=== PATIENT | female | born 1985 | race Caucasian/White ===

== ENCOUNTER 2019-12-16 10:00 | Outpatient (RCR) | payer OTHER, MEDICAID, SELFPAY | END 2019-12-16 10:05 | disposition home or self-care (01) | LOC: PT 10:00 | PROVIDERS: PCP Nurse Practitioner Family | DX: M54.5 Low back pain (principal) | CPT/HCPCS: 97010; 97014; 97110; 97163; G0283 ==

== ENCOUNTER 2020-06-03 17:15 | Emergency (ER) | payer MEDICAID, SELFPAY ==
[2020-06-03 17:31] VITALS: BP 111/75; PULSE 93; RESP 18; TEMP 36.8; O2SAT 98; BMI 28.3
[2020-06-03 17:35] LABS: Apearance,Urine Cloudy (Clear); Color,Urine Dark Yellow (Yellow); Glucose,Urine (UA) Negative (Negative); PH,Urine 5.5 (5.0-8.5); Protein,Urine 1+ (Negative)
[2020-06-03 17:36] LABS: Bilirubin,Urine 1+ (Negative); Blood, Urine 3+ (Negative); Ketones,Urine Negative (Negative); UTC Leukocyte Esterase,Urine Trace (Negative); UTC Nitrate,Urine Negative (Negative); Urobilinogen,Urine 0.2 EU/dl (0.2)
--- NOTE | 2020-06-03 18:04 | HMH.EDUTC ---
[facility] [place] Clinical Impression: UTI (urinary tract infection) Qualifiers: Urinary tract infection type: acute cystitis Hematuria presence: without hematuria Qualified Code(s): N30.00 - Acute cystitis without hematuria Disposition: Home, Self-Care Condition on Discharge: Good Instructions: Urinary Tract Infection Additional Instructions: Increase fluids, water and not soda or tea. Can drink cranberry juice or cranberry extract. White front to back Wear cotton underwear Empty bladder after intercourse Start antibiotics immediately and make sure you take the full course although you may start to see improvement over the next 48 hours. You can eat yogurt or take probiotics to decrease diarrhea or yeast infection caused by the antibiotic Be sure to follow-up anytime for new or worsening symptoms in 48 hours for wound urine culture results be sure to let you PCP no recent urine for culture so they can request records and ensure that you have appropriate antibiotic if you are not getting better or getting worse. If symptoms worsen or do not improve return or be seen in the ER. Follow-up with primary care this week. Prescriptions: cephALEXin [Keflex 500mg Cap] 500 mg PO BID 10 Days #20 cap Transmission Status: Pending to [facility] cephALEXin [Keflex 500mg Cap] 500 mg PO BID 10 Days #20 cap Prescription Printed Referrals: PCP,No [Primary Care Provider] - Time of Disposition: 18:18 Medical Decision Making - Channing Inquiry Pt receiving controlled substance: No Vital Signs: 06/03/20 17:31 Temperature 98.2 F Temperature Source Oral Pulse Rate [Right Brachial] 93 H Respiratory Rate 18 Blood Pressure [Right Arm] 111/75 Blood Pressure Mean [Right Arm] 87 Blood Pressure Source [Right Arm] Automatic Cuff Blood Pressure Position [Right Arm] Sitting 02 Sat by Pulse Oximetry 98 Oxygen Delivery Method Room Air - Lab Data Lab Results 06/03/20 17:19: Urine Color Dark yellow, Urine Appearance Cloudy, Urine pH 5.5, Ur Specific [place] 1.030, Urine Protein 1+, Urine Glucose (UA) Negative, Urine Ketones Negative, Urine Blood 3+, Urine Nitrate Negative, Urine Bilirubin 1+ A, Urine Urobilinogen 0.2, Ur Leukocyte Esterase Trace Orders (Tests/Meds): ORDERS Category Date Time Status Urine Culture Stat Micro 06/03/20 17:35 Ordered [facility] [place] - General Chief complaint: Urgent [facility] Center Stated complaint: painful voiding Time Seen by Provider: 06/03/20 18:04 Mode of Arrival: Ambulatory Source of Information: Patient Limitations: No Limitations Description of Symptoms (Recalled from Triage Doc. by RN): PATIENT C/O PAIN WITH URINATION SINCE LAST NIGHT HEENT Symptoms (Recalled from RN notes): No Resp Symptoms (Recalled from RN notes): No Skin Symptoms (Recalled from RN notes): No MS Symptoms (Recalled from RN notes): No Functional Status (Recalled from RN notes): WNL - History of Present Illness Provider Complaint: 35 yr old female presents for burning with urination, freq urination,needing to go alot snce last pm - Related Data Home Medications Medication Instructions Recorded Confirmed buprenorphine 8 mg-naloxone 2 mg SUBLINGUAL #28 tab 03/26/19 04/30/19 sublingual tablet bupropion HCl 150 mg 24 hr tablet, PO #30 tab 03/26/19 04/30/19 extended release buspirone 5 mg tablet 5 mg PO #30 tab 03/26/19 04/30/19 mirtazapine 30 mg tablet 30 mg PO #30 tab 03/26/19 04/30/19 Previous Rx's Medication Instructions Recorded acetaminophen 325 mg capsule 325 mg PO Q6H PRN #14 cap 06/24/18 predniSONE [Prednisone 20mg 20 mg PO BID #10 tab 02/12/19 Tab] doxycycline hyclate 100 mg capsule 100 mg PO BID 5 Days #10 cap 03/26/19 doxycycline hyclate 100 mg capsule 100 mg PO BID #60 cap 04/30/19 cephALEXin [Keflex 500mg Cap] 500 mg PO BID 10 Days #20 cap 06/03/20 cephALEXin [Keflex 500mg Cap] 500 mg PO BID 10 Days #20 cap 06/03/20 Allergies Allergy/AdvReac Type Severity Reaction Status
[2020-06-03 18:22] VITALS: BP 111/75; PULSE 93; RESP 18; TEMP 36.8; O2SAT 98
== END 2020-06-03 18:25 | disposition home or self-care (01) ==
PROVIDERS: Emergency Provider Nurse Practitioner Family
DX: N30.00 Acute cystitis without hematuria (principal); F41.8 Other specified anxiety disorders; F17.210 Nicotine dependence, cigarettes, uncomplicated
CPT/HCPCS: 81003; 87086; 87088; 87186; 99201

== ENCOUNTER → 2020-10-10 17:14 | Outpatient (CLI) | payer MEDICAID, SELFPAY ==
[2020-10-10 18:21] LABS: HCG,Quantitative 8083 mIU/ml (0-5.42)
== END ==
PROVIDERS: Visit Provider Obstetrics & Gynecology
DX: Z32.00 Encounter for pregnancy test, result unknown (principal)
CPT/HCPCS: 36415; 84702

== ENCOUNTER → 2020-10-18 12:58 | Outpatient (CLI) | payer MEDICAID, SELFPAY ==
--- NOTE | 2020-10-18 13:03 | US_ITS ---
PROCEDURE: US OB TRANSVAGINAL CLINICAL INDICATION: US OB Dates COMPARISON: No exams were available for comparison FINDINGS: An intrauterine gestational sac is present with a pole with a crown-rump length of 0.8cm correlating to gestational age of 6weeks 6days. heart tones are present with an FHR of 122bpm. Yolk sac is noted. Unremarkable adnexa IMPRESSION: Live IUP at 6 weeks 6 days Estimated due date by Ultrasound is 06/07/2021 Dictated by: Nino Sal MD 10/18/2020 16:55 Nino Sal MD in OV 10/18/2020 16:55
== END ==
PROVIDERS: Visit Provider Obstetrics & Gynecology
DX: O26.841 Uterine size-date discrepancy, first trimester (principal)
CPT/HCPCS: 76817

== ENCOUNTER → 2020-11-22 10:09 | Outpatient (CLI) | payer MEDICAID, SELFPAY ==
[2020-11-22 11:22] LABS: Barbiturates Screen,Urine Negative ng/ml (<200)
[2020-11-22 11:23] LABS: Amphetamine/Metha Screen,Urine Negative ng/ml (<1000); Benzodiazepines Screen,Urine Negative ng/ml (<200)
[2020-11-22 11:24] LABS: Cocaine Screen,Urine Negative ng/ml (<300); Methadone Screen,Urine Negative ng/ml (<300)
[2020-11-22 11:25] LABS: Cannabinoid Screen,Urine Negative ng/ml (<50)
[2020-11-22 11:26] LABS: Opiate Screen,Urine Negative ng/ml (<300); Phencyclidine Screen,Urine Negative ng/ml (<25)
[2020-11-22 11:48] LABS: Basophils % 0.4 % (0.1-2.0); Eosinophils # 0.1 K/mm3 (0.0-0.4); Eosinophils % 1.6 % (0.1-12.0); Hematocrit 38.6 % (37.0-47.0); Hemoglobin 13.6 g/dL (12.2-16.2); Lymphocytes # 2.2 K/mm3 (0.7-4.5); Lymphocytes % 30.5 % (10-50); Mean Corpuscular HGB Conc 35.3 g/dL (31.8-35.4); Mean Corpuscular Hemoglobin 30.8 pg (27.0-31.2); Mean Corpuscular Volume 87.3 fl (81-99); Mean Platelet Volume 8.2 fl (7.4-10.4); Monocytes # 0.4 K/mm3 (0.1-1.0); Monocytes % 5.7 % (1.7-9.3); Neutrophils # 4.4 K/mm3 (1.8-7.8); Neutrophils % 61.8 % (37.0-80.0); Platelet Count 246 K/mm3 (142-424); Red Blood Count 4.41 M/mm3 (4.20-5.40); Red Cell Distribution Width 13.7 % (11.5-17.5); White Blood Count 7.1 K/mm3 (4.8-10.8)
[2020-11-23 11:29] LABS: Hepatitis B Surface Antigen Negative (Negative); Hepatitis C Antibody >11.0 s/co ratio (0.0-0.9)
[2020-11-23 11:30] LABS: HIV Screen 4th Generation wRfx Non Reactive (Non Reactive); Rubella Antibodies, IgG 2.56 index (Immune >0.99)
[2020-11-24 11:32] LABS: Rapid Plasma Reagin Ab Titer Non Reactive (NonRea<1:1)
== END ==
PROVIDERS: Visit Provider Obstetrics & Gynecology
DX: Z34.90 Encounter for supervision of normal pregnancy, unspecified, unspecified trimester (principal)
CPT/HCPCS: 36415; 80305; 85025; 86592; 86703; 86762; 86850; 87340; 87380; G0432

== ENCOUNTER → 2020-12-06 14:57 | Outpatient (CLI) | payer MEDICAID, SELFPAY | PROVIDERS: PCP Obstetrics & Gynecology; Visit Provider Nurse Practitioner Family | DX: Z20.822 Contact with and (suspected) exposure to COVID-19 (principal); J02.9 Acute pharyngitis, unspecified | CPT/HCPCS: U0003 ==

== ENCOUNTER → 2021-02-01 21:59 | Outpatient (CLI) | payer MEDICAID, SELFPAY | PROVIDERS: PCP Obstetrics & Gynecology; Visit Provider Nurse Practitioner Family | DX: Z20.822 Contact with and (suspected) exposure to COVID-19 (principal) | CPT/HCPCS: U0003 ==

== ENCOUNTER 2021-05-10 10:44 | Inpatient (IN) | payer MEDICAID, SELFPAY ==
[2021-05-10 11:07] VITALS: BP 116/71; PULSE 50; RESP 19; TEMP 36.4; O2SAT 100; BMI 25.0
[2021-05-10 13:13] LABS: Coronavirus 19, PCR Not Detected (NotDetected); Influenza A, PCR Not Detected (NotDetected); Influenza B, PCR Not Detected (NotDetected)
[2021-05-10 13:19] LABS: Basophils # 0.1 K/mm3 (0-0.2); Basophils % 0.4 % (0.1-2.0); Eosinophils # 0.1 K/mm3 (0.0-0.4); Eosinophils % 0.5 % (0.1-12.0); Hematocrit 33.8 % (37.0-47.0); Hemoglobin 11.8 g/dL (12.2-16.2); Lymphocytes # 2.1 K/mm3 (0.7-4.5); Lymphocytes % 12.2 % (10-50); MANUAL DIFFERENTIAL MANUAL DIFFERENTIAL (MANUAL DIFF); Mean Corpuscular Hemoglobin 28.5 pg (27.0-31.2); Mean Corpuscular Volume 81.5 fl (81-99); Mean Platelet Volume 8.8 fl (7.4-10.4); Monocytes # 0.6 K/mm3 (0.1-1.0); Monocytes % 3.4 % (1.7-9.3); Neutrophils # 14.2 K/mm3 (1.8-7.8); Neutrophils % 83.6 % (37.0-80.0); Platelet Count 208 K/mm3 (142-424); Red Blood Count 4.15 M/mm3 (4.20-5.40); Red Cell Distribution Width 13.6 % (11.5-17.5)
[2021-05-10 13:21] LABS: Microscopic, Urine URINE MICROSCOPIC (MICROSCOPIC)
[2021-05-10 13:33] LABS: Lymphocytes % 11 % (10-50); Monocytes % 4 % (2-9); Neutrophils % 85 % (42-76); Platelet Estimate Normal; RBC Morphology Normal; Total Cells Counted 100
[2021-05-10 13:41] LABS: Benzodiazepines Screen,Urine Negative ng/ml (<200)
[2021-05-10 13:42] LABS: Amphetamine/Metha Screen,Urine Negative ng/ml (<1000)
[2021-05-10 13:43] LABS: Barbiturates Screen,Urine Negative ng/ml (<200); Cannabinoid Screen,Urine Negative ng/ml (<50)
[2021-05-10 13:44] LABS: Cocaine Screen,Urine Negative ng/ml (<300)
[2021-05-10 13:45] LABS: Methadone Screen,Urine Negative ng/ml (<300); Opiate Screen,Urine Negative ng/ml (<300)
[2021-05-10 13:46] LABS: Phencyclidine Screen,Urine Negative ng/ml (<25)
[2021-05-10 13:52] LABS: Appearance,Urine TURBID (Clear); Bilirubin,Urine Negative (Negative); Blood, Urine 3+ (Negative); Color,Urine RED (Yellow); Glucose,Urine (UA) Negative (Negative); Ketones,Urine 2+ (Negative); Leukocyte Esterase,Urine 1+ (Negative); Nitrate,Urine POSITIVE (Negative); PH,Urine 8.5 (5.0-8.5); Protein,Urine 3+ (Negative)
[2021-05-10 14:13] LABS: Bacteria,Urine 1+ /lpf; RBC,Urine 20-50 #/hpf (0-3)
--- NOTE | 2021-05-10 15:32 | HMH.HP ---
*Admission Date: 05/10/21 *Chief complaint: s/p vaginal delivery at home *History of present illness: 36 yo presented by EMS s/p vaginal delivery at home, approximately 10:10am today She had no care, other than a single appointment in the first trimester, in November 2020 complicated by subutex 8mg BID, tobacco smoking, and chronic hepatitis c EMS was called out to the house after precipitous vaginal delivery in the patient's bathroom Placenta was still intact upon arrival to [facility] Infant liveborn and brought to hospital for assessment The patient was placed in lithotomy position and the placenta was delivered using downward traction No vulvar/vaginal/cervical lesions noted EBL 100cc upon arrival [facility] History I have reviewed the patient's past medical history: Yes Medical History: Reports:: Anxiety, Depression, Hepatitis *Have you ever received a pneumonia vaccine?: No *Have you received a flu vaccine this season?: No Other Medical History: Reports: Sinus Problems, Other Laterality Cases: Bilateral: Tonsillectomy Other Surgeries: Yes: No Previous Surgery, Cholecystectomy. No: Amputation: No Fractures: No - *Social History Smoking Status: Current every day smoker Tobacco Type: cigarettes # Packs/Day (cigarettes): 1 Alcohol Intake: never Alcohol Intake Frequency:: holidays/special occasions only Substance Use Type: former substance user *Occupational Status:: unemployed Housing: house Household Members: family *Travel in the last 8 weeks: None - Psychiatric History Pschychiatric History:: Reports:: Anxiety, Depression Family Hx:: Cancer, Diabetes, Hypertension, Stroke : 6 Para: 4 Review of Systems - Review of Systems Review of systems:: pertinent systems reviewed and negative unless documented below - *Genitourinary Denies abnormal vaginal bleeding Meds Home Medications Medication Instructions Recorded Confirmed Type buprenorphine 8 mg-naloxone 2 mg 8 mg SUBLINGUAL BID #28 tab 03/26/19 05/10/21 History sublingual tablet Allergies Allergy/AdvReac Type Severity Reaction Status Date / Time Penicillins Allergy Verified 02/23/21 18:06 Exam Vital signs and Labs for Last 24 Hours: Temp Pulse Resp BP Pulse Ox 97.5 F L 50 L 19 116/71 100 05/10/21 11:07 05/10/21 11:07 05/10/21 11:07 05/10/21 11:07 05/10/21 11:07 Laboratory Results - last 24 hr 05/10/21 12:00: Urine Color Red, Urine Appearance Turbid, Urine pH 8.5, Ur Specific [place] 1.020, Urine Protein 3+, Urine Glucose (UA) Negative, Urine Ketones 2+, Urine Blood 3+, Urine Nitrate Positive, Urine Bilirubin Negative, Urine Urobilinogen 2.0, Ur Leukocyte Esterase 1+ A, Urine RBC 20-50, Urine WBC 5-10, Ur Squamous Epith Cells 3-5, Urine Bacteria 1+ 05/10/21 12:40: Urine Opiates Screen Negative, Urine Methadone Screen Negative, Ur Barbituates Screen Negative, Ur Phencyclidine Scrn Negative, Ur Amphetamines Screen Negative, U Benzodiazepines Scrn Negative, Urine Cocaine Screen Negative, U Marijuana (THC) Screen Negative 05/10/21 12:59: SARS-CoV-2 (PCR) Not detected, Influenza A Untype (PCR) Not detected, Influenza Type B (PCR) Not detected 05/10/21 13:07: WBC 17.0 H, RBC 4.15 L, Hgb 11.8 L, Hct 33.8 L, MCV 81.5, MCH 28.5, MCHC 35.0, RDW 13.6, Plt Count 208, MPV 8.8, Neut % (Auto) 83.6 H, Lymph % (Auto) 12.2, [place] % (Auto) 3.4, Eos % (Auto) 0.5, Baso % (Auto) 0.4, Neut # (Auto) 14.2 H, Lymph # (Auto) 2.1, [place] # (Auto) 0.6, Eos # (Auto) 0.1, Baso # (Auto) 0.1, Total Counted 100, Neutrophils % (Manual) 85 H, Lymphocytes % (Manual) 11, Monocytes % (Manual) 4, Platelet Estimate Normal, RBC Morphology Normal 05/10/21 13:07: Blood Type O Positive, Antibody Screen Negative I & O for Last 24 hours: Intake & Output 05/08/21 05/09/21 05/10/21 05/11/21 11:59 11:59 11:59 11:59 Weight 150 lb - Constitutional mild distress - *Routine HEENT Exam Head: Present: normocephalic Eye: Present: EOMI, PERRL EN
--- NOTE | 2021-05-10 16:34 | HMH.DCSUM ---
General - General Admission date:: 05/10/21 Discharge date: 05/10/21 HPI HPI: 36 yo presented by EMS s/p vaginal delivery at home, approximately 10:10am today She had no care, other than a single appointment in the first trimester, in November 2020 complicated by subutex 8mg BID, tobacco smoking, and chronic hepatitis c EMS was called out to the house after precipitous vaginal delivery in the patient's bathroom Placenta was still intact upon arrival to [facility] Infant liveborn and brought to hospital for assessment The patient was placed in lithotomy position and the placenta was delivered using downward traction No vulvar/vaginal/cervical lesions noted EBL 100cc upon arrival Hospital Course Hospital Course: maternal course uneventful UDS negative, but patient admitted to recent heroin use infant having withdrawal symptoms and concerns for meconium aspiration and was transferred to tertiary center mother requesting discharge home today in order to follow infant to [place] Objective Vital signs: Temp Pulse Resp BP Pulse Ox 97.5 F L 50 L 19 116/71 100 05/10/21 11:07 05/10/21 11:07 05/10/21 11:07 05/10/21 11:07 05/10/21 11:07 Narrative: CONSTITUTIONAL: no acute distress HEENT: mucous membranes moist PULMONARY: breathing unlabored without audible wheezes CV: no tachycardia or visible JVD; normal LE peripheral pulses ABD: soft, NT/ND, no guarding : fundus firm below umbilicus SKIN: no visible rash or lesions EXT: 1+ edema LEs NEURO: alert/oriented, no altered mental status PSYCH: appropriate mood and demeanor Results Labs on day of discharge: Labs from last 24 hours 05/10/21 05/10/21 05/10/21 13:07 13:07 12:59 WBC 17.0 H RBC 4.15 L Hgb 11.8 L Hct 33.8 L MCV 81.5 MCH 28.5 MCHC 35.0 RDW 13.6 Plt Count 208 MPV 8.8 Neut % (Auto) 83.6 H Lymph % (Auto) 12.2 [place] % (Auto) 3.4 Eos % (Auto) 0.5 Baso % (Auto) 0.4 Neut # (Auto) 14.2 H Lymph # (Auto) 2.1 [place] # (Auto) 0.6 Eos # (Auto) 0.1 Baso # (Auto) 0.1 Total Counted 100 Neutrophils % (Manual) 85 H Lymphocytes % (Manual) 11 Monocytes % (Manual) 4 Platelet Estimate Normal RBC Morphology Normal Urine Color Urine Appearance Urine pH Ur Specific [place] Urine Protein Urine Glucose (UA) Urine Ketones Urine Blood Urine Nitrate Urine Bilirubin Urine Urobilinogen Ur Leukocyte Esterase Urine RBC Urine WBC Ur Squamous Epith Cells Urine Bacteria Urine Opiates Screen Urine Methadone Screen Ur Barbituates Screen Ur Phencyclidine Scrn Ur Amphetamines Screen U Benzodiazepines Scrn Urine Cocaine Screen U Marijuana (THC) Screen SARS-CoV-2 (PCR) Not detected Influenza A Untype (PCR) Not detected Influenza Type B (PCR) Not detected Blood Type O Positive Antibody Screen Negative 05/10/21 05/10/21 12:40 12:00 WBC RBC Hgb Hct MCV MCH MCHC RDW Plt Count MPV Neut % (Auto) Lymph % (Auto) [place] % (Auto) Eos % (Auto) Baso % (Auto) Neut # (Auto) Lymph # (Auto) [place] # (Auto) Eos # (Auto) Baso # (Auto) Total Counted Neutrophils % (Manual) Lymphocytes % (Manual) Monocytes % (Manual) Platelet Estimate RBC Morphology Urine Color Red Urine Appearance Turbid Urine pH 8.5 Ur Specific [place] 1.020 Urine Protein 3+ Urine Glucose (UA) Negative Urine Ketones 2+ Urine Blood 3+ Urine Nitrate Positive Urine Bilirubin Negative Urine Urobilinogen 2.0 Ur Leukocyte Esterase 1+ A Urine RBC 20-50 Urine WBC 5-10 Ur Squamous Epith Cells 3-5 Urine Bacteria 1+ Urine Opiates Screen Negative Urine Methadone Screen Negative Ur Barbituates Screen Negative Ur Phencyclidine Scrn Negative Ur Amphetamines Screen Negative U Benzodiazep
--- NOTE | 2021-05-11 10:28 | SW/DCPLANNER ---
I have called and spoke with Anni ([employer] Mechanic) at [facility] regarding situation and not being reported to Central Intake due to discharge of mother and transport of .
== END 2021-05-10 16:50 | disposition home or self-care (01) | DRG 776 ==
PROVIDERS: Admitting Provider Obstetrics & Gynecology; PCP Obstetrics & Gynecology; Visit Provider Obstetrics & Gynecology
DX: Z39.0 Encounter for care and examination of mother immediately after delivery (principal); O99.323 Drug use complicating pregnancy, third trimester; O60.10X0 Preterm labor with preterm delivery, unspecified trimester, not applicable or unspecified; B18.2 Chronic viral hepatitis C; F11.10 Opioid abuse, uncomplicated; O99.330 Smoking (tobacco) complicating pregnancy, unspecified trimester; F17.210 Nicotine dependence, cigarettes, uncomplicated; Z3A.36 36 weeks gestation of pregnancy
CPT/HCPCS: 59430; 80305; 81001; 85007; 85025; 86850; 87086; U0003

== ENCOUNTER → 2021-08-08 14:44 | Outpatient (CLI) | payer MEDICAID, SELFPAY ==
[2021-08-08 15:02] LABS: Basophils % 0.5 % (0.1-2.0); Eosinophils # 0.2 K/mm3 (0.0-0.4); Eosinophils % 2.1 % (0.1-12.0); Hematocrit 35.3 % (37.0-47.0); Hemoglobin 11.2 g/dL (12.2-16.2); Lymphocytes % 29.3 % (10-50); Mean Corpuscular HGB Conc 31.7 g/dL (31.8-35.4); Mean Corpuscular Hemoglobin 25.8 pg (27.0-31.2); Mean Corpuscular Volume 81.2 fl (81-99); Mean Platelet Volume 8.9 fl (7.4-10.4); Monocytes # 0.5 K/mm3 (0.1-1.0); Monocytes % 7.1 % (1.7-9.3); Neutrophils # 4.2 K/mm3 (1.8-7.8); Platelet Count 339 K/mm3 (142-424); Red Blood Count 4.35 M/mm3 (4.20-5.40); Red Cell Distribution Width 14.7 % (11.5-17.5)
[2021-08-08 15:16] LABS: Chloride 104 mmol/L (98-107); Sodium 140 mmol/L (136-145)
[2021-08-08 15:17] LABS: Potassium 4.2 mmoL/L (3.5-5.1)
[2021-08-08 15:19] LABS: Alanine Aminotransferase 16 U/L (12-78); Albumin Level 3.5 g/dl (3.5-5.0); Albumin/Globulin Ratio 1.1 (1.1-1.8); Alkaline Phosphatase 115 U/L (38-126); Aspartate Amino Transferase 22 U/L (14-36); Bilirubin,Total < 0.1 mg/dl (0.2-1.3); Blood Urea Nitrogen 6 mg/dl (7-17); Carbon Dioxide 31 mmol/L (22.0-30.0); Estimated Glomerular Filt Rate 140 ml/min (>60); GFR (African American) 170 ML/MIN (>60); Globulin 3.3 g/dL (1.3-3.2); Total Protein,Serum 6.8 g/dl (6.3-8.2)
[2021-08-08 15:20] LABS: Anion Gap 9.2 mEq/L (5-15); Calcium 9.1 mg/dl (8.4-10.2); Glucose 105 mg/dl (74-100)
[2021-08-10 05:10] LABS: HIV Screen 4th Generation wRfx Non Reactive (Non Reactive)
[2021-08-10 07:12] LABS: Hep A Ab, IgM Negative (Negative); Hep A Ab, Total Positive (Negative); Hep B Core Ab, Total Positive (Negative); Hep B Surface Ab, Qual Reactive (.); Hepatitis B Surface Antigen Negative (Negative); Hepatitis C Antibody >11.0 s/co ratio (0.0-0.9)
[2021-08-11 05:49] LABS: ALT (SGPT) P5P 14 IU/L (0-40); Alpha 2-Macroglobulins, Qn 179 mg/dL (110-276); Apolipoprotein A-1 107 mg/dL (116-209); Bilirubin, Total <0.1 mg/dL (0.0-1.2); Fibrosis Score 0.02 (0.00-0.21); GGT 9 IU/L (0-60); Haptoglobin 207 mg/dL (33-278); Necroinflammat Activity Grade A0-No activity (.); Necroinflammat Activity Score 0.03 (0.00-0.17)
== END ==
PROVIDERS: Visit Provider Emergency Medicine
DX: R76.8 Other specified abnormal immunological findings in serum (principal); Z01.84 Encounter for antibody response examination; Z11.4 Encounter for screening for human immunodeficiency virus [HIV]
CPT/HCPCS: 80053; 81596; 85025; 86703; 86704; 86706; 86708; 87340; 87380; 87522; G0432

== ENCOUNTER → 2021-11-12 20:27 | Outpatient (CLI) | payer MEDICAID, SELFPAY ==
--- NOTE | 2021-11-12 20:40 | XR_ITS ---
PROCEDURE INFORMATION: Exam: XR Chest Exam date and time: 11/12/2021 8:40 PM Age: 36 years old Clinical indication: Condition or disease; Lung condition and disease; Tuberculosis; Patient HX: Positive tb skin test; Additional info: R/O tb TECHNIQUE: Imaging protocol: XR of the chest. Views: 2 views. COMPARISON: CR CXR2V XR chest 2V 02/12/2019 2:01 PM FINDINGS: Lungs: Unremarkable. No consolidation. Pleural spaces: Unremarkable. No pleural effusion. No pneumothorax. Heart/Mediastinum: Unremarkable. No cardiomegaly. Bones/joints: There is mild levoconvex lower cervical and upper thoracic scoliosis which may be positional. No occult fracture. IMPRESSION: No acute findings.
== END ==
PROVIDERS: PCP Emergency Medicine; Visit Provider Nurse Practitioner Family
DX: R76.12 Nonspecific reaction to cell mediated immunity measurement of gamma interferon antigen response without active tuberculosis (principal)
CPT/HCPCS: 71046

== ENCOUNTER 2021-12-04 19:22 | Emergency (ER) | payer SELFPAY ==
[2021-12-04 19:23] VITALS: BP 113/82; PULSE 105; RESP 16; TEMP 36.7; O2SAT 98; BMI 16.6
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
[2021-12-04 19:59] VITALS: BP 123/79; PULSE 101; RESP 16; TEMP 36.7; O2SAT 98
== END 2021-12-04 20:02 ==
PROVIDERS: Emergency Provider Emergency Medicine; PCP Emergency Medicine
DX: Z00.8 Encounter for other general examination (principal); Z88.0 Allergy status to penicillin; F41.8 Other specified anxiety disorders
CPT/HCPCS: 99282

== ENCOUNTER → 2022-01-01 11:54 | Outpatient (CLI) | payer MEDICAID, SELFPAY ==
[2022-01-03 20:09] LABS: QuantiFERON-TB Gold Plus Negative (Negative)
== END ==
PROVIDERS: PCP Emergency Medicine; Visit Provider Nurse Practitioner Family
DX: Z20.822 Contact with and (suspected) exposure to COVID-19 (principal)
CPT/HCPCS: 36415; 86480

== ENCOUNTER 2022-01-01 12:57 | Emergency (ER) | payer MEDICAID, SELFPAY ==
[2022-01-01 13:06] VITALS: BP 110/70; PULSE 96; RESP 20; TEMP 37; O2SAT 99; BMI 22.3
[2022-01-01 13:23] VITALS: BP 110/70; PULSE 96; RESP 20; TEMP 37; O2SAT 99; BMI 22.1
[2022-01-01 13:45] LABS: Urine Pregnancy, HCG Qual. Negative (Negative)
--- NOTE | 2022-01-01 13:53 | HMH.EDGENADL ---
ED Disposition Clinical Impression: Pneumonia Qualifiers: Pneumonia type: due to unspecified organism Laterality: left Lung location: lower lobe of lung Qualified Code(s): J18.9 - Pneumonia, unspecified organism Serous otitis media Qualifiers: Chronicity: acute Laterality: right Recurrence: not specified as recurrent Qualified Code(s): H65.01 - Acute serous otitis media, right ear Disposition: Home, Self-Care Condition on Discharge: Good Instructions: DI for Pneumonia -- Adult, DI for Otitis Media (Middle Ear Infection)-Child Additional Instructions: Quarantine yourself until you obtain your COVID-19 test result. You will be called with the result if it is positive. You may check the results yourself on the [facility] portal. Additional instructions for PNEUMONIA: Take antibiotics as prescribed. See your physician as soon as possible for further evaluation. Return immediately if you have an uncontrollable fever greater than 102 degrees, difficulty breathing or shortness of breath, persistent vomiting, or severe chest pain. Prescriptions: Cefdinir [Omnicef 300mg Capsule] 300 mg PO BID #20 cap Transmission Status: Pending to [facility] Azithromycin [Zithromax 250mg tab] 250 mg PO DAILY #4 tab Transmission Status: Pending to [facility] Referrals: Todd Brownlee MD [Primary Care Provider] - - Critical Care Critical Care Time: No Attestation: On 01/01/22, the high probability of a clinically significant, sudden or life threatening deterioration of the following system(s) required my full and direct attention, intervention and personal management. The time I documented below is in addition to time spent performing reported procedures but includes the following listed in this critical care notation. Medical Decision Making - Channing Inquiry Pt receiving controlled substance: No Vital Signs: 01/01/22 13:06 01/01/22 13:23 Temperature 98.6 F 98.6 F Temperature Source Oral Oral Pulse Rate [Left Radial] 96 H 96 H Respiratory Rate 20 20 Blood Pressure [Left Arm] 110/70 110/70 Blood Pressure Mean [Left Arm] 83 83 Blood Pressure Source [Left Arm] Automatic Cuff Automatic Cuff Blood Pressure Position [Left Arm] Sitting Sitting 02 Sat by Pulse Oximetry 99 99 Oxygen Delivery Method Room Air Room Air - Lab Data Lab Results 03/01/22 13:28: Urine HCG, Qual Negative 01/01/22 13:28: Urine Color Dk yellow, Urine Appearance Cloudy, Urine pH 5.5, Ur Specific [place] >= 1.030, Urine Protein Trace, Urine Glucose (UA) Negative, Urine Ketones Negative, Urine Blood 3+, Urine Nitrate Negative, Urine Bilirubin Negative, Urine Urobilinogen 0.2, Ur Leukocyte Esterase Negative, Urine RBC 50-100, Urine WBC Occasional, Ur Squamous Epith Cells None, Urine Bacteria None Orders (Tests/Meds): ORDERS Category Date Time Status Covid-19 Nasal PCR ([facility]) Routine Lab 01/01/22 15:22 Received - Radiology Data #1 Image(s): Chest Image Reviewed: Yes I reviewed the patient's radiology image, Yes I have reviewed radiologist's interpretation Procedure(s): XR chest 2V Accession Number(s): [id number] cc: Todd Brownlee MD; Gurvinder Dempsey MD~ FINAL REPORT CLINICAL HISTORY: cough, smoker, no surgeries COMPARISON: November 12, 2021 FINDINGS: Two views of the chest were obtained. The heart size and pulmonary vascularity are within normal limits. The mediastinum is normal. There is new left base opacity consistent with pneumonia. There is no pneumothorax. The bony thorax is intact. IMPRESSION: New left base opacity consistent with pneumonia. Reviewed, Interpreted and Dictated by Gurvinder Dempsey III, MD Transcribed by Pat Soares Authenticated by Gurvinder Dempsey III, MD on 01/01/2022 03:10:20 PM [facility] Medical Decision Narrative: States allergy to penicillin as a child. She has had amoxicillin and Keflex without problems. Ge
[2022-01-01 13:57] LABS: Microscopic, Urine URINE MICROSCOPIC (MICROSCOPIC)
[2022-01-01 13:59] LABS: Appearance,Urine CLOUDY (Clear); Bilirubin,Urine Negative (Negative); Blood, Urine 3+ (Negative); Color,Urine DK YELLOW (Yellow); Glucose,Urine (UA) Negative (Negative); Ketones,Urine Negative (Negative); Leukocyte Esterase,Urine Negative (Negative); Nitrate,Urine Negative (Negative); PH,Urine 5.5 (5.0-8.5); Protein,Urine TRACE (Negative); Specific Gravity, Urine >= 1.030 (1.005-1.030); Urobilinogen,Urine 0.2 EU/dl (0.2)
[2022-01-01 14:11] LABS: RBC,Urine 50-100 #/hpf (0-3); WBC,Urine Occasional #/hpf (0-3)
--- NOTE | 2022-01-01 14:23 | XR_ITS ---
FINAL REPORT CLINICAL HISTORY: cough, smoker, no surgeries COMPARISON: November 12, 2021 FINDINGS: Two views of the chest were obtained. The heart size and pulmonary vascularity are within normal limits. The mediastinum is normal. There is new left base opacity consistent with pneumonia. There is no pneumothorax. The bony thorax is intact. IMPRESSION: New left base opacity consistent with pneumonia. Reviewed, Interpreted and Dictated by Gurvinder Dempsey III, MD Transcribed by Pat Soares Authenticated by Gurvinder Dempsey III, MD on 01/01/2022 03:10:20 PM [facility]
--- NOTE | 2022-01-01 15:35 | PC.NURSE ---
pt left out of the ambulance bay [facility] staff went out after pt, pt states she was hungry and wanted to smoke. Informed pt we could get her food and she could not smoke on hospital property. Pt came into ER with ER staff.
[2022-01-01 15:42] VITALS: BP 112/64; PULSE 91; RESP 19; TEMP 37; O2SAT 99
== END 2022-01-01 15:44 | disposition home or self-care (01) ==
PROVIDERS: Emergency Provider Emergency Medicine; PCP Emergency Medicine
DX: J18.9 Pneumonia, unspecified organism (principal); H65.01 Acute serous otitis media, right ear; F41.8 Other specified anxiety disorders; F17.210 Nicotine dependence, cigarettes, uncomplicated
CPT/HCPCS: 71046; 81001; 81025; 99283; C9803; U0003; U0005

== ENCOUNTER 2022-02-27 12:34 | Emergency (ER) | payer MEDICAID, SELFPAY ==
[2022-02-27 12:35] VITALS: BP 125/70; PULSE 101; RESP 17; TEMP 36.9; O2SAT 99; BMI 24.0
--- NOTE | 2022-02-27 12:45 | XR_ITS ---
FINAL REPORT TECHNIQUE: Chest PA & Lateral CLINICAL HISTORY: Productive cough COMPARISON: January 01, 2022 FINDINGS: 2 views of the chest were performed. The heart size is normal. The mediastinum is within normal limits. There is no acute cardiopulmonary process. There are no pleural effusions. There is no pneumothorax. The bony thorax appears intact. IMPRESSION: No acute cardiopulmonary process. Reviewed, Interpreted and Dictated by Ankit Godinez MD Transcribed by Anthony Cisneros Authenticated by Ankit Godinez MD on 02/27/2022 02:05:47 PM [facility]
--- NOTE | 2022-02-27 13:09 | HMH.EDGENADL ---
ED Disposition Clinical Impression: Acute bronchitis Qualifiers: Bronchitis organism: unspecified organism Qualified Code(s): J20.9 - Acute bronchitis, unspecified Disposition: Home, Self-Care Condition on Discharge: Good Instructions: DI for Acute Bronchitis Additional Instructions: Zithromax as prescribed. Tessalon as needed for cough. Additional instructions for ACUTE BRONCHITIS: Use Tylenol or Ibuprofen for pain or fever. Rest and plenty of fluids. Return immediately if you have an uncontrollable fever greater than 102 degrees, severe headache or neck stiffness, difficulty breathing or shortness of breath, persistent vomiting, severe sore throat or inability to swallow. See your physician if not improving in 4-5 days. Prescriptions: Benzonatate [Benzonatate 100mg cap] 100 mg PO TIDP PRN #15 cap PRN Reason: Cough Transmission Status: Pending to [facility] Azithromycin [Zithromax 250mg tab] 250 mg PO DIRECTED #6 tab Transmission Status: Pending to [facility] Referrals: Todd Brownlee MD [Primary Care Provider] - Forms: Work/School Release - Critical Care Critical Care Time: No Attestation: On 02/27/22, the high probability of a clinically significant, sudden or life threatening deterioration of the following system(s) required my full and direct attention, intervention and personal management. The time I documented below is in addition to time spent performing reported procedures but includes the following listed in this critical care notation. Medical Decision Making - Channing Inquiry Pt receiving controlled substance: No Vital Signs: 02/27/22 12:35 Temperature 98.4 F Temperature Source Oral Pulse Rate [Right Radial] 101 H Respiratory Rate 17 Blood Pressure [Right Arm] 125/70 Blood Pressure Mean [Right Arm] 88 Blood Pressure Source [Right Arm] Automatic Cuff Blood Pressure Position [Right Arm] Sitting 02 Sat by Pulse Oximetry 99 Oxygen Delivery Method Room Air Orders (Tests/Meds): ORDERS Category Date Time Status XR chest 2V Stat Exams 02/27/22 12:45 Taken - Radiology Data #1 Image(s): Chest Image Reviewed: Yes I reviewed the patient's radiology image Preliminary Findings: Normal/NAD Medical Decision Narrative: Findings consistent with acute bronchitis, however given her recent bout of pneumonia, I will cover with Zithromax. General Adult HPI - General Chief complaint: Upper Respiratory Infection Stated complaint: cough Time Seen by Provider: 02/27/22 13:15 Mode of Arrival: Ambulatory Limitations: No Limitations Description of Symptoms (Recalled from ER Triage Doc. by RN): C/O productive cough x2 days - History of Present Illness HPI narrative: 2-day history of her productive cough with green sputum. Feels feverish, but temperature not taken. Denies rhinorrhea. She does have a sore throat. No known exposures to any illnesses. Seen by me in this emergency department 01/01/2022 for pneumonia. She recovered from that. She is a smoker. No history of asthma or COPD. - Related Data Home Medications Medication Instructions Recorded Confirmed buprenorphine 8 mg-naloxone 2 mg 8 mg SUBLINGUAL BID #28 tab 03/26/19 05/10/21 sublingual tablet mirtazapine 15 mg tablet 15 mg PO HS 08/08/21 08/08/21 Previous Rx's Medication Instructions Recorded gabapentin 300 mg capsule 300 mg PO TID #90 cap 08/08/21 cephalexin 500 mg capsule 500 mg PO Q12H 10 Days #20 cap 08/09/21 phenazopyridine 200 mg tablet 200 mg PO TID PRN 0 Days #6 tab 08/09/21 Azithromycin [Zithromax 250mg 250 mg PO DAILY #4 tab 01/01/22 tab] Cefdinir [Omnicef 300mg Capsule] 300 mg PO BID #20 cap 01/01/22 Azithromycin [Zithromax 250mg 250 mg PO DIRECTED #6 tab 02/27/22 tab] Benzonatate [Benzonatate 100mg 100 mg PO TIDP PRN #15 cap 02/27/22 cap] Allergies Allergy/AdvReac Type Severity Reaction Status Date / Time P
[2022-02-27 13:32] VITALS: BP 121/68; PULSE 94; RESP 17; TEMP 36.8; O2SAT 99
== END 2022-02-27 13:33 | disposition home or self-care (01) ==
PROVIDERS: Emergency Provider Emergency Medicine; PCP Emergency Medicine
DX: J06.9 Acute upper respiratory infection, unspecified (principal); J02.9 Acute pharyngitis, unspecified; J32.9 Chronic sinusitis, unspecified; K75.9 Inflammatory liver disease, unspecified; F32.A Depression, unspecified; F41.9 Anxiety disorder, unspecified; F17.210 Nicotine dependence, cigarettes, uncomplicated; Z88.0 Allergy status to penicillin; Z82.49 Family history of ischemic heart disease and other diseases of the circulatory system; Z80.9 Family history of malignant neoplasm, unspecified; Z83.3 Family history of diabetes mellitus
CPT/HCPCS: 71046; 99283

== ENCOUNTER 2022-04-08 13:26 | Emergency (ER) | payer MEDICAID, SELFPAY ==
[2022-04-08 13:26] VITALS: BP 99/50; PULSE 147; RESP 18; TEMP 37.7; O2SAT 88; BMI 24.0
--- NOTE | 2022-04-08 13:27 | XR_ITS ---
FINAL REPORT CLINICAL HISTORY: overdose, fall, pt could not stop shaking for images COMPARISON: February 27, 2022 FINDINGS: A single portable view of the chest was obtained. The heart size and pulmonary vascularity are within normal limits. The mediastinum is within normal limits. There are mild bibasilar pulmonary opacities, favor atelectasis. The bony thorax is intact. IMPRESSION: Mild bibasilar pulmonary opacities, favor atelectasis. Reviewed, Interpreted and Dictated by Gurvinder Dempsey III, MD Transcribed by Debora Carcamo Authenticated and [facility]
--- NOTE | 2022-04-08 13:31 | XR_ITS ---
FINAL REPORT TECHNIQUE: 3 views CLINICAL HISTORY: neck pain, fall, overdose, very shaky FINDINGS: There is no fracture present. There is no malalignment. There are mild degenerative changes. IMPRESSION: Degenerative changes with no acute process. Reviewed, Interpreted and Dictated by Gurvinder Dempsey III, MD Transcribed by Debora Carcamo Authenticated and [facility]
--- NOTE | 2022-04-08 13:35 | HMH.EDGENADL ---
ED Disposition Clinical Impression: Cervical pain (neck) Accidental heroin overdose Qualifiers: Encounter type: initial encounter Qualified Code(s): T40.1X1A - Poisoning by heroin, accidental (unintentional), initial encounter Disposition: Home, Self-Care Condition on Discharge: Fair Instructions: DI for Drug Overdose in Adults, DI for Neck Pain Prescriptions: Naproxen [Naproxen 500mg tab] 500 mg PO BID #30 tab Transmission Status: Pending to [facility] Naloxone HCl [Narcan] 4 mg NS ONCE PRN #1 ml PRN Reason: Opioid Reversal Transmission Status: Pending to [facility] Time of Disposition: 16:03 - Critical Care Critical Care Time: No Attestation: On , the high probability of a clinically significant, sudden or life threatening deterioration of the following system(s) required my full and direct attention, intervention and personal management. The time I documented below is in addition to time spent performing reported procedures but includes the following listed in this critical care notation. Medical Decision Making - Medical Records Medical records reviewed: Yes: I reviewed the patient's medical records. - Channing Inquiry Pt receiving controlled substance: No Vital Signs: 04/08/22 13:26 04/08/22 13:36 Temperature 99.9 F H Temperature Source Oral Pulse Rate [Radial] 147 H Respiratory Rate 18 Blood Pressure [Right Arm] 99/50 L Blood Pressure Mean [Right Arm] 66 Blood Pressure Position [Right Arm] Sitting 02 Sat by Pulse Oximetry 88 L 98 Oxygen Delivery Method Room Air Nasal Cannula Oxygen Flow Rate (LPM) 2 - Lab Data Lab Results 04/08/22 13:45: Serum HCG, Qual Negative Orders (Tests/Meds): ED MEDICATIONS Discontinued Medications Generic Name Dose Route Start Last Admin Trade Name Freq PRN Reason Stop Dose Admin Gabapentin 300 mg 04/08/22 15:16 04/08/22 15:23 Gabapentin 100mg Capsule PO 04/08/22 15:17 300 mg ONCE ONE Administration Ibuprofen 600 mg 04/08/22 15:17 04/08/22 15:23 Ibuprofen 600 Mg Tablet PO 04/08/22 15:18 600 mg ONCE ONE Administration ORDERS Category Date Time Status Urine , HCG Qual. Stat Lab 04/08/22 13:32 Ordered Medical Decision Narrative: In summary this is a 37-year-old female presenting to the emergency department after heroin overdose. Patient clinically stable on arrival. She is tachycardic. Received naloxone. Respiratory rate is nonlabored. She is awake and alert speaking in full sentences. Complaining of neck pain. Will obtain x-rays. We will also obtain EKG, chest x-ray, hCG. hCG negative EKG shows sinus tachycardia. No evidence of ischemia or arrhythmia. x-ray shows no pulmonary edema or other acute finding. X-ray of the neck shows no bony changes, no fracture or other acute abnormality On reassessment, patient is awake and alert. Tolerating oral intake. She does not feel as if she is withdrawing. No longer intoxicated. Her primary care physician is Dr. Brownlee. I recommended that she follow-up closely in clinic. Offered Suboxone. She says she does not want to start this medication now. She is considering methadone and other options. Given prescription for naloxone to use for another person in the case of overdose. Recommended she teach her family how to use it. Given return precautions. Stable for discharge General Adult HPI - General Stated complaint: O/D Time Seen by Provider: 04/08/22 13:30 Mode of Arrival: Ambulatory Source of Information: Patient Limitations: No Limitations - History of Present Illness HPI narrative: 37-year-old female presenting to the emergency department after possible overdose. EMS was called to a local gas station for a patient unresponsive in the bathroom. There was a needle on her person. She was given 1 mg intranasal naloxone. She woke up shortly after. Said she had fallen. Admitted to heroin use.
[2022-04-08 13:36] VITALS: O2SAT 98
[2022-04-08 14:11] LABS: HCG Qualitative, Serum Negative (Negative)
--- NOTE | 2022-04-08 14:11 | ECG_ITS ---
APPROVED REPORT Exam: Resting ECG HR:112 bpm ECG Measurements Heart Rate 112 AXES [place] 124 P 52 QRSd 81 QRS 46 QT 300 T 41 QTc 366 Conclusion SINUS TACHYCARDIA LEFT ATRIAL ENLARGEMENT [-0.15mV P-WAVE IN V1/V2] ABNORMAL ECG UNCONFIRMED REPORT Electronically signed by : Edouard Ochoa MD 04/09/2022 18:42:13
--- NOTE | 2022-04-08 14:18 | PC.NURSE ---
matilde,rn notified radiology of pt being negative pt ready for xrays
--- NOTE | 2022-04-08 14:24 | PC.NURSE ---
pt to radiology via wheelchair
--- NOTE | 2022-04-08 14:37 | PC.NURSE ---
pt return from radiology
--- NOTE | 2022-04-08 15:25 | PC.NURSE ---
called for meal tray for pt
--- NOTE | 2022-04-08 15:32 | PC.NURSE ---
PT GIVEN MATERIAL FOR DRUG REHAB
--- NOTE | 2022-04-08 15:39 | PC.NURSE ---
pt sitting up in bed eating at this time. Will continue to monitor
[2022-04-08 16:08] VITALS: BP 99/50; PULSE 109; RESP 16; TEMP 36.6; O2SAT 98
== END 2022-04-08 16:10 | disposition home or self-care (01) ==
PROVIDERS: Emergency Provider Emergency Medicine; PCP Emergency Medicine
DX: M54.2 Cervicalgia (principal); T40.1X1A Poisoning by heroin, accidental (unintentional), initial encounter; F32.A Depression, unspecified; F41.9 Anxiety disorder, unspecified; K75.9 Inflammatory liver disease, unspecified; Z72.0 Tobacco use
CPT/HCPCS: 71046; 72040; 84703; 93005; 99283

== ENCOUNTER → 2022-04-25 15:14 | Outpatient (CLI) | payer MEDICAID, SELFPAY ==
--- NOTE | 2022-04-25 15:18 | XR_ITS ---
FINAL REPORT CLINICAL HISTORY: REACTION TO [facility]ASUREMENT OF GAMMA INTE COMPARISON: April 08, 2022 FINDINGS: Two views of the chest were obtained. The heart size and pulmonary vascularity are within normal limits. The mediastinum is normal. No acute pulmonary abnormality is identified. There is no pneumothorax. The bony thorax is intact. IMPRESSION: No active cardiopulmonary disease. Reviewed, Interpreted and Dictated by Gurvinder Dempsey III, MD Transcribed by Pat Soares Authenticated and [facility]
== END ==
PROVIDERS: PCP Emergency Medicine; Visit Provider Nurse Practitioner Family
DX: R76.12 Nonspecific reaction to cell mediated immunity measurement of gamma interferon antigen response without active tuberculosis (principal)
CPT/HCPCS: 71046

== ENCOUNTER 2022-05-17 16:03 | Emergency (ER) | payer MEDICAID, SELFPAY ==
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
[2022-05-17 16:25] VITALS: BP 101/68; PULSE 112; RESP 19; TEMP 37.1; O2SAT 98; BMI 22.3
[2022-05-17 16:54] VITALS: BP 118/70; PULSE 89; RESP 16; TEMP 37.5
== END 2022-05-17 16:55 | disposition home or self-care (01) ==
PROVIDERS: Emergency Provider Nurse Practitioner Family; PCP Emergency Medicine
DX: U07.1 COVID-19 (principal); J40 Bronchitis, not specified as acute or chronic
CPT/HCPCS: 99212; C9803; G0463; U0003; U0005

== ENCOUNTER 2023-01-21 12:07 | Inpatient (IN) | payer MEDICAID, SELFPAY ==
[2023-01-21 12:08] VITALS: BP 107/68; PULSE 112; RESP 16; TEMP 36.7; O2SAT 98; BMI 20.5
--- NOTE | 2023-01-21 12:34 | HMH.EDGENADL ---
Discharge Plan Disposition Patient Disposition: Admitted As Inpatient Prescriptions Prescriptions: No Action buprenorphine-naloxone 8-2 mg tablet, sublingual 8 mg SUBLINGUAL BID Qty: 28 Label Comments: DISSOLVE 2 TS UNDER THE TONGUE QD mirtazapine 15 mg tablet 15 mg PO HS gabapentin 300 mg capsule 300 mg PO TID Qty: 90 1RF cephalexin 500 mg capsule 500 mg PO Q12H 10 Days Qty: 20 0RF phenazopyridine [Pyridium] 200 mg tablet 200 mg PO TID PRN (Reason: pain) 0 Days Qty: 6 0RF azithromycin 250 MG tablet 250 mg PO DAILY Qty: 4 0RF cefdinir 300 MG capsule 300 mg PO BID Qty: 20 0RF naproxen 500 MG tablet 500 mg PO BID Qty: 30 0RF naloxone 4 MG spray,non-aerosol 4 mg NS ONCE PRN (Reason: Opioid Reversal) Qty: 1 0RF azithromycin 250 MG tablet 250 mg PO UD DOSE PK Qty: 6 0RF Rx Instructions: Take two (2) tablets today, then one (1) tablet days #2 thru #5 benzonatate 100 MG capsule 100 mg PO TIDP PRN (Reason: Cough) Qty: 30 0RF methylprednisolone 4 MG tablets,dose pack 4 mg PO DIRECTED 6 Days Qty: 21 0RF azithromycin 250 MG tablet 250 mg PO DIRECTED Qty: 6 0RF Rx Instructions: Take two (2) tablets on day #1, then one (1) tablet day #2 thru #5 benzonatate 100 MG capsule 100 mg PO TIDP PRN (Reason: Cough) Qty: 15 0RF Referrals Follow up/Referrals: Todd Brownlee MD [Primary Care Provider] - See instructions Clinical Impressions Clinical Impression: Abscess of hand, Cellulitis of dorsum of hand, Cellulitis of forearm Instructions Patient Instructions: DI for Skin Abscess Discharge ED Provider: Christina Cruz General Adult HPI General Chief complaint: Skin/Abscess/Foreign Body Stated complaint: RT hand inflammation w/redness no accident Time Seen by Provider: 01/21/23 12:34 Mode of Arrival: Ambulatory Source of Information: Patient Limitations: No Limitations Description of Symptoms (Recalled from ER Triage Doc. by RN): Redness/swelling to R hand extending up to forearm. Pt does have a scabbed over area on top of R hand, states has had pus like drainage from this area when she scratched it open. Hand is warm to the touch. Cap refill WNL, radial pulse positive, pt very tender to the touch. Pt states no known fevers, reports has had no energy the past couple days, has been laying in bed mostly. History of Present Illness HPI narrative: 37-year-old female with a history injection drug use actively using up to 2 weeks ago comes in with significant dorsal right hand swelling erythema pain extending up the dorsum of her right forearm. No systemic symptoms specifically no fevers or chills she states. She has been tested in the remote past for hepatitis and HIV and they have been negative however she is but that has not been tested in years and she has been actively sharing dirty needles at times. She is followed in Suboxone clinic who told her to come in today. She denies using within the last 2 weeks denies any withdrawal symptoms. States current symptoms have worsened over the last few days. Related Data Home Medications Medication Instructions Recorded Confirmed buprenorphine 8 mg-naloxone 2 mg 8 mg sublingual BID drug abuse #28 03/26/19 05/10/21 sublingual tablet tabs mirtazapine 15 mg tablet 15 mg PO HS 08/08/21 08/08/21 Previous Rx's Medication Instructions Recorded gabapentin 300 mg capsule 300 mg PO TID #90 caps 08/08/21 cephalexin 500 mg capsule 500 mg PO Q12H uti and otitis 08/09/21 media 10 days #20 caps phenazopyridine 200 mg tablet 200 mg PO TID PRN pain 6 doses #6 08/09/21 (Pyridium) tabs azithromycin 250 mg tablet 250 mg PO DAILY #4 tabs 01/01/22 cefdinir 300 mg capsule 300 mg PO BID #20 caps 01/01/22 azithromycin 250 mg tablet 250 mg PO DIRECTED #6 tabs 02/27/22 benzonatate 100 mg capsule 100 mg PO TIDP PRN Cough #15 caps 02/27/22 naloxone 4 mg/actuation nasal spray 4 mg intranasal ONCE MO
--- NOTE | 2023-01-21 12:38 | PC.NURSE ---
JOSEPHINE GAVIN at
--- NOTE | 2023-01-21 12:55 | PC.NURSE ---
ER at for procedure
--- NOTE | 2023-01-21 13:17 | PC.NURSE ---
notified care management of admission
--- NOTE | 2023-01-21 13:31 | EXP.HP ---
History of Present Illness *Admission Date: 01/21/23 *Reason for visit:: Right hand pain and swelling *History of present illness: 37-year-old female with history of IV drug use who presented to the ER with worsening redness and swelling in her right hand extending up her forearm. States that she has had some drainage from a lesion on her right hand over the past 2 weeks. Worsening pain and swelling over that timeframe as well. States she was actively using IV drugs 2 to 3 weeks ago but has since stopped after getting reestablished with her Suboxone provider. States that the swelling has gotten most problematic in her hand over the past few days. She has been tested in the past for HIV and hepatitis. Reports that she had hepatitis C but cleared it on her own. Does report that she was sharing needles, does not use clean needles every time she injects. Encouraged to seek medical care by her Suboxone provider. Denies any withdrawal symptoms. States she has injected heroin in the past. In the ER found to have concern for abscess, I&D performed. Labs pending at time of admission. Medicine consulted for admission. After arriving to the floor, patient denies fever, chest pain, shortness of breath, vomiting, or diarrhea. Does have some mild nausea. Has not felt well the past few days. Tolerating dinner on exam. [facility] Disclaimer: The information contained in this section may have been updated after the patient was seen, as this information can be updated by other users. Medical History Cholecystectomy planned Social History Smoking Status: Current every day smoker tobacco type: cigarettes packs per day: 1 alcohol intake: never substance use type: former substance user current occupational status: unemployed Travel in the last 8 weeks: None household members: family housing: house Review of Systems Review of Systems Review of systems (narrative): 14 point review of systems performed, pertinent positives and negatives as per HPI Meds Home Medications and Allergies Home Medications Medication Instructions Recorded Confirmed Type buprenorphine 8 mg-naloxone 2 mg 1 tab sublingual BID Opioid use 03/26/19 01/21/23 History sublingual tablet disorder #28 tabs hydroxyzine pamoate 50 mg capsule 50 mg PO TID Anxiety 01/21/23 01/21/23 History sertraline 50 mg tablet 50 mg PO DAILY Depression 01/21/23 01/21/23 History New Prescriptions to Start Prescriptions: Allergies Allergy/AdvReac Type Severity Reaction Status Date / Time Penicillins Allergy Verified 05/17/22 16:27 Exam Data for Last 24 hours Vital signs and Labs for Last 24 Hours: Temp Pulse Resp BP Pulse Ox 98.1 F 112 H 16 107/68 L 98 01/21/23 12:08 01/21/23 12:08 01/21/23 12:08 01/21/23 12:08 01/21/23 12:08 I & O for Last 24 hours: Intake & Output 01/18/23 01/19/23 01/20/23 01/21/23 23:59 23:59 23:59 23:59 Weight 54.431 kg Constitutional Constitutional: no acute distress *Routine HEENT Exam Head: Present normocephalic Eye: Present EOMI and PERRL ENT: Present mucous membranes moist Comments: Abrasion to upper lip *Routine Neck Exam Neck: Present supple; Absent lymphadenopathy *Routine Respiratory Exam Respiratory: Present CTA bilaterally and normal respiratory effort; Absent rhonchi, wheezes or crackles *Routine Cardiovascular Exam Cardiovascular: Present tachycardia; Absent murmur *Routine Abdominal Exam Abdominal: Present soft and normoactive bowel sounds; Absent tenderness *Routine Rectal Exam Rectal:: deferred *Routine Genitalia Exam Genitalia:: deferred *Routine Extremities Exam Extremities: Present edema (Right hand. Warmth and redness just proximal to right wrist. Unable to make fist of right hand); Absent cyanosis or clubbing Comments: Left hand with scabs over veins, appear to be tracked
[2023-01-21 13:42] LABS: Coronavirus 19, PCR Not Detected (NotDetected); Influenza A, PCR Not Detected (NotDetected); Influenza B, PCR Not Detected (NotDetected)
[2023-01-21 13:44] LABS: Basophils # 0.1 K/mm3 (0-0.2); Basophils % 0.5 % (0.1-2.0); Eosinophils # 0.2 K/mm3 (0.0-0.4); Eosinophils % 0.9 % (0.1-12.0); Hematocrit 42.4 % (37.0-47.0); Hemoglobin 13.9 g/dL (12.2-16.2); Lymphocytes # 2.1 K/mm3 (0.7-4.5); Lymphocytes % 11.1 % (10-50); Mean Corpuscular HGB Conc 32.7 g/dL (31.8-35.4); Mean Corpuscular Hemoglobin 26.9 pg (27.0-31.2); Mean Corpuscular Volume 82.2 fl (81-99); Mean Platelet Volume 7.7 fl (7.4-10.4); Monocytes # 0.6 K/mm3 (0.1-1.0); Monocytes % 3.4 % (1.7-9.3); Neutrophils # 15.5 K/mm3 (1.8-7.8); Platelet Count 344 K/mm3 (142-424); Red Blood Count 5.15 M/mm3 (4.20-5.40); Red Cell Distribution Width 14.7 % (11.5-17.5); White Blood Count 18.5 K/mm3 (4.8-10.8)
[2023-01-21 13:46] LABS: MANUAL DIFFERENTIAL MANUAL DIFFERENTIAL (MANUAL DIFF)
[2023-01-21 13:54] LABS: Alanine Aminotransferase 14 U/L (12-78); Albumin Level 4.3 g/dl (3.5-5.0); Albumin/Globulin Ratio 1.3 (1.1-1.8); Alkaline Phosphatase 102 U/L (38-126); Anion Gap 9.7 mEq/L (5-15); Aspartate Amino Transferase 17 U/L (14-36); Bilirubin,Total 0.6 mg/dl (0.2-1.3); Blood Urea Nitrogen 9 mg/dl (7-17); Calcium 8.8 mg/dl (8.4-10.2); Carbon Dioxide 32 mmol/L (22.0-30.0); Chloride 96 mmol/L (98-107); Creatinine Clearance Estimated 111 mL/min (50-200); Estimated Glomerular Filt Rate 113 ml/min (>60); GFR (African American) 137 ML/MIN (>60); Globulin 3.3 g/dL (1.3-3.2); Glucose 126 mg/dl (74-100); Potassium 3.7 mmoL/L (3.5-5.1); Sodium 134 mmol/L (136-145); Total Protein,Serum 7.6 g/dl (6.3-8.2)
[2023-01-21 13:59] LABS: C-Reactive Protein 172.8 mg/L (0-4)
[2023-01-21 14:02] LABS: Eosinophils % 1 % (0-3); Lymphocytes % 12 % (10-50); Monocytes % 6 % (2-9); Neutrophils % 81 % (42-76); Platelet Estimate Normal; RBC Morphology Normal; Total Cells Counted 100
--- NOTE | 2023-01-21 14:09 | HMH.PHAINT1 ---
Pharmacy Intervention Comments: Reconciled patient's medication list using pharmacy fill history
[2023-01-21 14:10] VITALS: BP 100/67; PULSE 92; RESP 16; TEMP 36.7; O2SAT 98
[2023-01-21 14:14] LABS: Erythrocyte Sedimentation Rate 21 mm/hr (0-20)
--- NOTE | 2023-01-21 14:16 | PC.NURSE ---
report called to des sorensen rn on second floor at this time
--- NOTE | 2023-01-21 14:18 | P.CONPHA_ITS ---
Pharmacy Consult Date: 01/21/23 Time: 14:18 Referring provider: DR. 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 New Prescriptions to Start Prescriptions: Height: 1.63 m Weight: 54.431 kg Laboratory Results:: Laboratory Results - last 24 hr 01/21/23 13:32: ESR 21 H 01/21/23 13:32: C-Reactive Protein 172.8 H 01/21/23 13:32: WBC 18.5 H, RBC 5.15, Hgb 13.9, Hct 42.4, MCV 82.2, MCH 26.9 L, MCHC 32.7, RDW 14.7, Plt Count 344, MPV 7.7, Neut % (Auto) 84.0 H, Lymph % (Auto) 11.1, Morris % (Auto) 3.4, Eos % (Auto) 0.9, Baso % (Auto) 0.5, Neut # (Auto) 15.5 H, Lymph # (Auto) 2.1, Morris # (Auto) 0.6, Eos # (Auto) 0.2, Baso # (Auto) 0.1, Total Counted 100, Neutrophils % (Manual) 81 H, Lymphocytes % (Manual) 12, Monocytes % (Manual) 6, Eosinophils % (Manual) 1, Platelet Estimate Normal, RBC Morphology Normal 01/21/23 13:32: Sodium 134 L, Potassium 3.7, Chloride 96 L, Carbon Dioxide 32 H, Anion Gap 9.7, BUN 9, Creatinine 0.60, Estimated Creat Clear 111, Estimated GFR 113, Est GFR ( Amer) 137, Glucose 126 H, Calcium 8.8, Total Bilirubin 0.6, AST 17, ALT 14, Alkaline Phosphatase 102, Total Protein 7.6, Albumin 4.3, Globulin 3.3 H, Albumin/Globulin Ratio 1.3 01/21/23 13:32: SARS-CoV-2 (PCR) Not detected, Influenza A Untype (PCR) Not detected, Influenza Type B (PCR) Not detected 03/21/23 13:41: Lactate 1.0 Assessment and Plan Assessment and plan all Dx Assessment and Plan for all problems:: Pharmacokinetic dosing service Objective: Patient: Floor: Age: 37 yo Serum creatinine: 0.60 mg/dL Height: 64.2 Inches Weight (kg): 54.4 Assessment: IBW (kg): 59.66 Dosing wt(kg): 54.4 Estimated Creatinine clearance (ml/min): 130 Clearance limited to 130 ml/min to reduce risk of overdosing. CRCL method: Cockcroft and Gault using ibw(default). Drug selected: Vancomycin Loading dose (mg): Vd (liters): 40.8 (factor used: 0.75 L/kg) Carlos Alberto (hr-1): 0.112 Half life (hrs): 6.19 CLvanco=?? 4.570 L/hr Recommended dose: 1250 mg Interval: 12 hrs Infusion time (hrs): 2.0 Predicted peak (mcg/mL): 37.1 Predicted trough (mcg/mL): 12.10 Total body weight is being used for vancomycin dosing. Recommendations: Give Vancomycin 1250 mg q 12 hrs with an expected Cpeak of 37.1 mcg/ml and an expected Ctrough of 12.10 mcg/ml AUC 0-24 /VIKI Data: VIKI 0.5 mcg/mL:?? AUC/VIKI:? 1094.1 VIKI 1.0 mcg/mL:?? AUC/VIKI:? 547.0 --------- VIKI 1.5 mcg/mL:?? AUC/VIKI:? 364.7 VIKI 2.0 mcg/mL:?? AUC/VIKI:? 273.5 Thank you for the consult, will continue to follow. -WILLIAM RUTLEDGED
[2023-01-21 14:30] VITALS: BP 100/67; PULSE 92; RESP 16; TEMP 36.7; O2SAT 98
--- NOTE | 2023-01-21 14:31 | PC.NURSE ---
Pt arrived to the floor at this time.
[2023-01-21 14:47] VITALS: BP 122/77; PULSE 94; RESP 18; TEMP 37.1; O2SAT 100; BMI 22.4
[2023-01-21 15:58] VITALS: BP 108/63; PULSE 93; RESP 18; TEMP 36.9; O2SAT 97
--- NOTE | 2023-01-21 17:40 | PC.WOUNDNOTE ---
ABSCESS NOTED TO R HAND. EDEMA, WARMTH AND REDNESS NOTED. REDNESS EXTENDING TO MID FOREARM.
--- NOTE | 2023-01-21 18:04 | PC.NURSE ---
A&OX4. TOLERATING RA WELL. UP INDEPENDENTLY IN ROOM. PT HAS C/O PAIN TO R HAND, TX PER JAN. NO OTHER NEEDS THUS FAR. STILL NEED TO COLLECT URINE ON PT. PICTURES TAKEN OF R HAND, LOOSE DRESSING APPLIED PER MD. VSS.
[2023-01-21 20:00] VITALS: BP 96/61; PULSE 72; RESP 16; TEMP 36.8; O2SAT 98
--- NOTE | 2023-01-22 01:00 | PC.NURSE ---
Pt in bathroom talking on the phone at beginning of shift. When entering room to administer pt HS med, pt is asleep and somewhat hard to wake. Pt refused Suboxone stating No i dont want that, it will make me really tired . Pt denies taking any medication. VSS. Hospitalist made aware.
[2023-01-22 04:00] VITALS: BP 92/55; PULSE 81; RESP 14; TEMP 36.5; O2SAT 98; BMI 22.7
--- NOTE | 2023-01-22 06:05 | PC.NURSE ---
Pt has c/o pain in right hand 1x t/o shift. PRN Toradol administered. Wound site to right hand has had a moderate amount of serosanguineous drainage. DSG changed this am and is CDI. Call light within reach.
[2023-01-22 06:44] LABS: Basophils # 0.1 K/mm3 (0-0.2); Basophils % 0.5 % (0.1-2.0); Eosinophils # 0.3 K/mm3 (0.0-0.4); Eosinophils % 2.7 % (0.1-12.0); Hematocrit 34.4 % (37.0-47.0); Hemoglobin 11.4 g/dL (12.2-16.2); Lymphocytes # 2.4 K/mm3 (0.7-4.5); Lymphocytes % 24.3 % (10-50); Mean Corpuscular HGB Conc 33.1 g/dL (31.8-35.4); Mean Corpuscular Hemoglobin 27.1 pg (27.0-31.2); Mean Platelet Volume 7.9 fl (7.4-10.4); Monocytes # 0.5 K/mm3 (0.1-1.0); Monocytes % 5.5 % (1.7-9.3); Neutrophils # 6.5 K/mm3 (1.8-7.8); Neutrophils % 66.9 % (37.0-80.0); Platelet Count 282 K/mm3 (142-424); Red Cell Distribution Width 14.9 % (11.5-17.5); White Blood Count 9.7 K/mm3 (4.8-10.8)
[2023-01-22 06:54] LABS: Alanine Aminotransferase 9 U/L (12-78); Albumin/Globulin Ratio 1.1 (1.1-1.8); Alkaline Phosphatase 83 U/L (38-126); Anion Gap 6.2 mEq/L (5-15); Aspartate Amino Transferase 14 U/L (14-36); Bilirubin,Total 0.3 mg/dl (0.2-1.3); Blood Urea Nitrogen 12 mg/dl (7-17); Calcium 7.9 mg/dl (8.4-10.2); Carbon Dioxide 27 mmol/L (22.0-30.0); Chloride 105 mmol/L (98-107); Creatinine Clearance Estimated 148 mL/min (50-200); Estimated Glomerular Filt Rate 140 ml/min (>60); GFR (African American) 169 ML/MIN (>60); Globulin 2.8 g/dL (1.3-3.2); Glucose 97 mg/dl (74-100); Magnesium 2.4 mg/dl (1.6-2.3); Potassium 4.2 mmoL/L (3.5-5.1); Sodium 134 mmol/L (136-145); Total Protein,Serum 5.8 g/dl (6.3-8.2)
[2023-01-22 07:10] LABS: Procalcitonin 0.093 ng/mL (0.0-2.0)
[2023-01-22 08:00] VITALS: BP 100/60; PULSE 65; RESP 19; TEMP 36.6; O2SAT 98
--- NOTE | 2023-01-22 12:36 | EXP.ACUTE.PN ---
Subjective *Date: 01/22/23 *Time: 12:36 Interval history: Appears to be having improvement in swelling. No fevers overnight. Improvement in labs this morning. Tolerating p.o. intake. Sounds sleeper, but wakes to voice and tactile stimulation. Denies chest pain, shortness of breath, nausea, vomiting, diarrhea. Pain stable in hand. Medical Exam Vital signs and Labs for Last 24 Hours: Vital Signs Temp Pulse Pulse Resp BP BP Pulse Ox 01/22/23 08:00 97.9 F 65 19 100/60 L 98 01/22/23 04:00 97.7 F 81 14 92/55 L 98 01/21/23 20:00 98.2 F 72 16 96/61 L 98 01/21/23 15:58 98.4 F 93 H 18 108/63 L 97 01/21/23 14:47 98.8 F 94 H 18 122/77 100 01/21/23 14:30 98.1 F 92 H 16 100/67 L 01/21/23 14:10 98.1 F 92 H 16 100/67 L 98 Intake and Output 01/21/23 01/22/23 01/22/23 23:59 07:59 15:59 Intake Total 710 / 760 240 / 240 Output Total 0 / 0 100 / 100 Balance 710 / 760 -100 / 140 240 / 140 Intake: Intake, Oral Amount 360 / 360 240 / 240 Intake, Total IV Amount 350 / 350 Metronidaz/Sod Chl 500 mg In 100 / 100 100 ml @ 100 mls/hr IV ONCE ONE Rx#:[id number] Vancomycin HCl 1,000 mg In 0.9 250 / 250 % Sodium Chloride 250 ml @ 125 mls/hr IV Q8H [facility] Rx#:[id number] Output: Output, Urine Amount 0 / 0 100 / 100 Other: Number of Unmeasured Voids 1 Weight 60.413 kg Patient Weight 01/22/23 23:59 Weight 60.413 kg Laboratory Results - last 24 hr 01/21/23 13:32: ESR 21 H 01/21/23 13:32: C-Reactive Protein 172.8 H 01/21/23 13:32: WBC 18.5 H, RBC 5.15, Hgb 13.9, Hct 42.4, MCV 82.2, MCH 26.9 L, MCHC 32.7, RDW 14.7, Plt Count 344, MPV 7.7, Neut % (Auto) 84.0 H, Lymph % (Auto) 11.1, [place] % (Auto) 3.4, Eos % (Auto) 0.9, Baso % (Auto) 0.5, Neut # (Auto) 15.5 H, Lymph # (Auto) 2.1, [place] # (Auto) 0.6, Eos # (Auto) 0.2, Baso # (Auto) 0.1, Total Counted 100, Neutrophils % (Manual) 81 H, Lymphocytes % (Manual) 12, Monocytes % (Manual) 6, Eosinophils % (Manual) 1, Platelet Estimate Normal, RBC Morphology Normal 01/21/23 13:32: Sodium 134 L, Potassium 3.7, Chloride 96 L, Carbon Dioxide 32 H, Anion Gap 9.7, BUN 9, Creatinine 0.60, Estimated Creat Clear 111, Estimated GFR 113, Est GFR ( Amer) 137, Glucose 126 H, Calcium 8.8, Total Bilirubin 0.6, AST 17, ALT 14, Alkaline Phosphatase 102, Total Protein 7.6, Albumin 4.3, Globulin 3.3 H, Albumin/Globulin Ratio 1.3 01/21/23 13:32: SARS-CoV-2 (PCR) Not detected, Influenza A Untype (PCR) Not detected, Influenza Type B (PCR) Not detected 01/21/23 13:41: Lactate 1.0 01/22/23 06:15: WBC 9.7 D, RBC 4.20, Hgb 11.4 L D, Hct 34.4 L, MCV 82.0, MCH 27.1, MCHC 33.1, RDW 14.9, Plt Count 282, MPV 7.9, Neut % (Auto) 66.9, Lymph % (Auto) 24.3, [place] % (Auto) 5.5, Eos % (Auto) 2.7, Baso % (Auto) 0.5, Neut # (Auto) 6.5, Lymph # (Auto) 2.4, [place] # (Auto) 0.5, Eos # (Auto) 0.3, Baso # (Auto) 0.1 01/22/23 06:15: Sodium 134 L, Potassium 4.2, Chloride 105, Carbon Dioxide 27, Anion Gap 6.2, BUN 12 D, Creatinine 0.50 L, Estimated Creat Clear 148, Estimated GFR 140, Est GFR ( Amer) 169 D, Glucose 97 D, Calcium 7.9 L, Magnesium 2.4 H, Total Bilirubin 0.3, AST 14, ALT 9 L D, Alkaline Phosphatase 83, Total Protein 5.8 L, Albumin 3.0 L D, Globulin 2.8, Albumin/Globulin Ratio 1.1, Procalcitonin 0.093 I & O for Labs for Last 24 Hours: Intake & Output 01/19/23 01/20/23 01/21/23 01/22/23 23:59 23:59 23:59 23:59 Intake Total 760 / 760 240 / 240 Output Total 0 / 0 100 / 100 Balance 760 / 760 140 / 140 Weight 59.562 kg 60.413 kg Microbiology Reports for the Last 24 Hours: Microbiology 01/21/23 13:16 Hand,Right Gram Stain - Final 01/21/23 13:16 Hand,Right Wound Culture - Preliminary Gram Positive Cocci Constitutional: Present no acute distress Head: Present atraumatic and normocephalic ENT: Present normal exam Comment:: abrasion on upper lip Neck: Present normal inspe
[2023-01-22 16:00] VITALS: BP 97/56; PULSE 71; RESP 17; TEMP 36.7; O2SAT 99
--- NOTE | 2023-01-22 16:49 | PC.NURSE ---
removed dressing and packing from right hand to allow patient to bath. Yellow and light red drainage noted to the packing upon removal.
--- NOTE | 2023-01-22 17:00 | PC.NURSE ---
Suboxone counted and locked in patient drawer. Patient smoking in the bathroom, discussed this with the patient, Dr. Deutsch present. New orders placed for Nicotine patch.
--- NOTE | 2023-01-22 18:07 | PC.NURSE ---
Packed wound with 1/2 in iodoform coverved with folded 4x4 and secured with medipore tape.
[2023-01-22 20:00] VITALS: BP 102/61; PULSE 85; RESP 18; TEMP 36.6; O2SAT 99
[2023-01-23 04:00] VITALS: BP 96/51; PULSE 64; RESP 16; TEMP 37.1; O2SAT 94; BMI 23.2
--- NOTE | 2023-01-23 05:26 | PC.NURSE ---
REFUSED SUBOXONE AT 2100 STATING IT WOULD KEEP HER AWAKE ALL NIGHT. HAS SLEPT WELL. NO COMPLAINTS. DRSG TO RIGHT HAND C/D/I. HAND/WRIST RED AND WARM. REFUSES SCUDS. INSTRUCTED ON U/A COLLECTION. VITAL SIGNS STABLE/AFEBRILE.
[2023-01-23 06:24] LABS: Anion Gap 8.4 mEq/L (5-15); Blood Urea Nitrogen 18 mg/dl (7-17); Calcium 7.8 mg/dl (8.4-10.2); Carbon Dioxide 25 mmol/L (22.0-30.0); Chloride 106 mmol/L (98-107); Creatinine Clearance Estimated 126 mL/min (50-200); Estimated Glomerular Filt Rate 113 ml/min (>60); GFR (African American) 137 ML/MIN (>60); Glucose 85 mg/dl (74-100); Potassium 4.4 mmoL/L (3.5-5.1); Sodium 135 mmol/L (136-145)
[2023-01-23 06:28] LABS: Basophils % 0.6 % (0.1-2.0); Eosinophils # 0.3 K/mm3 (0.0-0.4); Hematocrit 34.7 % (37.0-47.0); Hemoglobin 11.4 g/dL (12.2-16.2); Lymphocytes # 1.5 K/mm3 (0.7-4.5); Lymphocytes % 21.7 % (10-50); Mean Corpuscular HGB Conc 32.9 g/dL (31.8-35.4); Mean Corpuscular Hemoglobin 27.6 pg (27.0-31.2); Mean Corpuscular Volume 83.9 fl (81-99); Mean Platelet Volume 8.1 fl (7.4-10.4); Monocytes # 0.5 K/mm3 (0.1-1.0); Monocytes % 6.7 % (1.7-9.3); Neutrophils # 4.7 K/mm3 (1.8-7.8); Platelet Count 283 K/mm3 (142-424); Red Blood Count 4.13 M/mm3 (4.20-5.40); Red Cell Distribution Width 14.8 % (11.5-17.5); White Blood Count 6.9 K/mm3 (4.8-10.8)
[2023-01-23 07:36] LABS: C-Reactive Protein 37.2 mg/L (0-4)
[2023-01-23 07:46] VITALS: BP 97/58; PULSE 81; RESP 17; TEMP 36.9; O2SAT 97
--- NOTE | 2023-01-23 07:51 | EXP.DC.SUM ---
General Admission date:: 01/21/23 Discharge date: 01/23/23 HPI HPI HPI: 37-year-old female with history of IV drug use who presented to the ER with worsening redness and swelling in her right hand extending up her forearm.? States that she has had some drainage from a lesion on her right hand over the past 2 weeks.? Worsening pain and swelling over that timeframe as well.? States she was actively using IV drugs 2 to 3 weeks ago but has since stopped after getting reestablished with her Suboxone provider.? States that the swelling has gotten most problematic in her hand over the past few days.? She has been tested in the past for HIV and hepatitis.? Reports that she had hepatitis C but cleared it on her own.? Does report that she was sharing needles, does not use clean needles every time she injects.? Encouraged to seek medical care by her Suboxone provider.? Denies any withdrawal symptoms.? States she has injected heroin in the past.? In the ER found to have concern for abscess, I&D performed.? Labs pending at time of admission.? Medicine consulted for admission. After arriving to the floor, patient denies fever, chest pain, shortness of breath, vomiting, or diarrhea.? Does have some mild nausea.? Has not felt well the past few days.? Tolerating dinner on exam. Hospital Course Hospital Course Hospital Course: 37-year-old female with history of IV drug use, presented with abscess in right hand.? Status post I&D in the ER.? Medicine consulted for admission, decision made to admit for IV antibiotics and further monitoring.? Problems addressed as follows: Sepsis, resolved Abscess of right hand with cellulitis -Presented with swelling and abscess of right hand. I&D performed in the ER. Cultures obtained. Started on broad-spectrum antibiotics with vancomycin, cefepime, Flagyl. Had significant improvement in swelling and edema and redness during hospitalization. Cultures positive for strep pyogenes. Given patient's penicillin allergy, transitioned to clindamycin to complete 10-day course for antibiotic therapy for her hand infection. Recommend continued packing of wound for the next 5 to 7 days to assist in closure and minimize risk for further development of abscess. Counseled on warning signs of worsening infection and need to seek care immediately. Have her follow-up with PCP within the next week. Patient's inflammatory markers improving by day of discharge, CRP 37.2 (down from 172 on admission). White cell count normalized. IV drug use Opiate dependence - Hepatitis C antibody positive in August 23, negative for HCV virus, appears to have cleared previous hepatitis infection. Repeat labs obtained this admission. HCV still pending at time of discharge however given previous clearance, suspect that will be positive for antibody still. HIV is nonreactive. Previous heroin use, has shared needles in the past. Extensive discussion about not sharing needles, cleaning her skin before injection if she chooses to inject, but also discussed the severe risks of infection, endocarditis, , loss of limb if she continues to use IV drugs. No withdrawal symptoms during hospitalization. Recommend continuing Suboxone per home regimen. Anxiety: Continue Zoloft and hydroxyzine per home regimen Spent 40 minutes in discharge counseling and direct care with patient. Exam Data for Last 24 hours Vital signs and Labs for Last 24 Hours: Temp Pulse Resp BP Pulse Ox 98.5 F 81 17 97/58 L 97 01/23/23 07:46 01/23/23 07:46 01/23/23 07:46 01/23/23 07:46 01/23/23 07:46 Laboratory Results - last 24 hr 01/23/23 05:42: WBC 6.9 D, RBC 4.13 L, Hgb 11.4 L, Hct 34.7 L, MCV 83.9, MCH 27.6, MCHC 32.9, RDW 14.8, Plt Count 283, MPV 8.1, Neut % (Auto) 67.0, Lymph % (Auto) 21.7, [place] % (Auto) 6.7, Eos % (Auto) 4.0, Baso % (Auto) 0.6, Neut # (Auto) 4.7, Lymph # (Auto) 1.5, [place] # (Auto) 0.5, Eos # (Auto) 0.3, Baso # (Auto) 0.0 01/23/23 05:42: Sodium 135 L, Pot
[2023-01-23 08:19] LABS: Benzodiazepines Screen,Urine Negative ng/ml (<200)
[2023-01-23 08:20] LABS: Amphetamine/Metha Screen,Urine Negative ng/ml (<1000); Barbiturates Screen,Urine Negative ng/ml (<200)
[2023-01-23 08:21] LABS: Cannabinoid Screen,Urine Negative ng/ml (<50); Methadone Screen,Urine Negative ng/ml (<300)
[2023-01-23 08:22] LABS: Cocaine Screen,Urine Negative ng/ml (<300)
[2023-01-23 08:24] LABS: Opiate Screen,Urine Negative ng/ml (<300)
[2023-01-23 08:25] LABS: Phencyclidine Screen,Urine Negative ng/ml (<25)
[2023-01-23 09:22] LABS: HIV Screen 4th Generation wRfx Non Reactive (Non Reactive)
--- NOTE | 2023-01-24 14:09 | CARE MANAGER ---
Spoke with patient for post-discharge phone interview. No issues noted.
[2023-01-25 01:01] LABS: Hepatitis C Antibody Reactive
== END 2023-01-23 11:00 | disposition home or self-care (01) | DRG 872 ==
LOC: ER 13:12 → 2ND 13:23
PROVIDERS: Admitting Provider Internal Medicine Adolescent Medicine; Emergency Provider Student in an Organized Health Care Education/Training Program; PCP Emergency Medicine; Visit Provider Internal Medicine Adolescent Medicine
DX: A41.9 Sepsis, unspecified organism (principal); L02.511 Cutaneous abscess of right hand; L03.113 Cellulitis of right upper limb; F11.20 Opioid dependence, uncomplicated; F17.210 Nicotine dependence, cigarettes, uncomplicated; F41.9 Anxiety disorder, unspecified; B19.20 Unspecified viral hepatitis C without hepatic coma
CPT/HCPCS: 10060; 36415; 80048; 80053; 80305; 83605; 83735; 84145; 85007; 85025; 85651; 86140; 86703; 87040; 87070; 87077; 87186; 87205; 87380; 99285; C9803; G0432; J0574; J0692; U0003; U0005

== ENCOUNTER → 2023-07-16 08:41 | Outpatient (CLI) | payer MEDICAID, SELFPAY ==
[2023-06-27 18:31] LABS: Amphetamine/Metha Screen,Urine Positive ng/ml (<1000)
[2023-06-27 18:32] LABS: Barbiturates Screen,Urine Negative ng/ml (<200)
[2023-06-27 18:35] LABS: Benzodiazepines Screen,Urine Negative ng/ml (<200); Cannabinoid Screen,Urine Negative ng/ml (<50)
[2023-06-27 18:36] LABS: Cocaine Screen,Urine Negative ng/ml (<300)
[2023-06-27 18:37] LABS: Methadone Screen,Urine Negative ng/ml (<300)
[2023-06-27 18:38] LABS: Opiate Screen,Urine Negative ng/ml (<300); Phencyclidine Screen,Urine Negative ng/ml (<25)
== END ==
PROVIDERS: PCP Emergency Medicine; Visit Provider Emergency Medicine
DX: M79.2 Neuralgia and neuritis, unspecified (principal)
CPT/HCPCS: 80305

== ENCOUNTER 2023-09-02 22:37 | Emergency (ER) | payer MEDICAID, SELFPAY ==
[2023-09-02 22:38] VITALS: BP 112/87; PULSE 86; RESP 16; TEMP 36.7; O2SAT 98; BMI 24.9
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
[2023-09-02 22:57] VITALS: BP 112/87; PULSE 86; RESP 16; TEMP 36.7; O2SAT 99
== END 2023-09-02 23:00 | disposition home or self-care (01) ==
PROVIDERS: Emergency Provider Student in an Organized Health Care Education/Training Program; PCP Emergency Medicine
DX: S09.90XA Unspecified injury of head, initial encounter (principal); F17.210 Nicotine dependence, cigarettes, uncomplicated; Y04.0XXA Assault by unarmed brawl or fight, initial encounter
CPT/HCPCS: 99283

== ENCOUNTER 2023-12-24 22:08 | Outpatient (CLI) | payer MEDICAID, SELFPAY ==
[2023-12-24 18:18] LABS: Coronavirus 19, PCR Not Detected (NotDetected); Influenza A, PCR Not Detected (NotDetected); Influenza B, PCR Not Detected (NotDetected)
[2023-12-24 18:52] LABS: Basophils % 0.2 % (0.1-2.0); Eosinophils # 0.1 K/mm3 (0.0-0.4); Eosinophils % 1.2 % (0.1-12.0); Hematocrit 41.8 % (37.0-47.0); Hemoglobin 13.8 g/dL (12.2-16.2); Lymphocytes % 17.5 % (10-50); Mean Corpuscular Hemoglobin 29.5 pg (27.0-31.2); Mean Corpuscular Volume 89.3 fl (81-99); Monocytes # 0.6 K/mm3 (0.1-1.0); Monocytes % 10.1 % (1.7-9.3); Neutrophils # 4.2 K/mm3 (1.8-7.8); Neutrophils % 70.9 % (37.0-80.0); Platelet Count 235 K/mm3 (142-424); Red Blood Count 4.68 M/mm3 (4.20-5.40); Red Cell Distribution Width 14.1 % (11.5-17.5); White Blood Count 5.9 K/mm3 (4.8-10.8)
[2023-12-24 19:02] LABS: Alanine Aminotransferase 16 U/L (12-78); Albumin Level 4.3 g/dl (3.5-5.0); Albumin/Globulin Ratio 1.6 (1.1-1.8); Alkaline Phosphatase 110 U/L (38-126); Aspartate Amino Transferase 22 U/L (14-36); Bilirubin,Total 0.7 mg/dl (0.2-1.3); Blood Urea Nitrogen 9 mg/dl (7-17); Calcium 9.1 mg/dl (8.4-10.2); Carbon Dioxide 30 mmol/L (22.0-30.0); Chloride 106 mmol/L (98-107); Chol/HDL Ratio 3.5 (1-3.5); Cholesterol 114 mg/dl (140-200); Estimated Glomerular Filt Rate 112 ml/min (>60); GFR (African American) 136 ML/MIN (>60); Globulin 2.7 g/dL (1.3-3.2); Glucose 97 mg/dl (74-100); HDL Cholesterol 33 mg/dl (40-60); Sodium 141 mmol/L (136-145); Triglycerides 108 mg/dl (30-150); VLDL Cholesterol 22 mg/dL (0-40)
[2023-12-24 19:14] LABS: Direct LDL Cholesterol 54.13 mg/dL (100-129)
[2023-12-24 19:23] LABS: 25-OH Vitamin D, Total 28.3 ng/mL (30-100)
[2023-12-24 19:52] LABS: Vitamin B12 366 pg/mL (239-931)
== END 2023-12-24 23:59 ==
LOC: LAB.DROPOF 22:08
PROVIDERS: PCP Family Medicine; Visit Provider Family Medicine
DX: R53.83 Other fatigue (principal); E55.9 Vitamin D deficiency, unspecified; J06.9 Acute upper respiratory infection, unspecified; R09.82 Postnasal drip; J02.9 Acute pharyngitis, unspecified
CPT/HCPCS: 80053; 80061; 82306; 82607; 84443; 85025; 87636